=== PATIENT | male | born 1990 | race Caucasian/White ===

== ENCOUNTER 2024-04-11 19:52 | Emergency (ER) | payer MEDICAID ==
[~2024-04-11] VITALS: Ht 160 cm; Wt 108.9 kg
[2024-04-11 21:00] VITALS: BP 142/92; TEMP 98.1; O2SAT 98
[2024-04-12] MEDS ORDERED: SULF1TAB48 PO (01:21)
[2024-04-12] MEDS ORDERED: CEPH500T PO (01:21)
[2024-04-12] MEDS ORDERED: CEPHALEXIN MONOHYDRATE 500 MG CAPSULE PO ONE (01:29)
[2024-04-12] MEDS ORDERED: SULFAMETH/TRIMETH 800/160 MG 1 UDTAB TABLET ONE (01:30)
[2024-04-12] MEDS: CEPHALEXIN MONOHYDRATE 500 MG CAPSULE PO ONE (01:37)
[2024-04-12] MEDS: SULFAMETH/TRIMETH 800/160 MG 1 UDTAB TABLET PO ONE (01:37)
== END 2024-04-12 01:38 | disposition home or self-care (01) ==
LOC: ER 20:03
DX: L03.116 Cellulitis of left lower limb (principal)